=== PATIENT | male | born 1950 | race Caucasian/White ===

== ENCOUNTER 2017-06-08 09:09 | Emergency (ER) | payer BC, MEDICARE ==
[2017-06-08 09:34] LABS: URINE MUCUS NONE SEEN (Up to 25%); URINE WBC NONE SEEN (0-4/hpf)
[2017-06-08 09:51] LABS: URINE APPEARANCE CLEAR; URINE BILIRUBIN 0.5 mg/100ml (1+) (NEGATIVE); URINE BLOOD TRACE (NEGATIVE); URINE COLOR DARK YELLOW; URINE GLUCOSE NORMAL (NEGATIVE); URINE KETONE 5mg/dL (NEGATIVE); URINE LEUKOCYTE ESTERASE NEGATIVE (NEGATIVE); URINE NITRITE NEGATIVE (NEGATIVE); URINE PH 6.5 (5-7); URINE PROTEIN 10mg/dL (trace) (NEG - TRACE); URINE RBC 0-5/hpf (0-5/hpf); URINE UROBILINOGEN 1mg/dL (Normal) (NEG-1mg/dL)
[2017-06-08 09:52] LABS: URINE BACTERIA NONE SEEN (<10/hpf)
[2017-06-08 10:07] LABS: HEMATOCRIT 52.3 % (42.0-54.0); HEMOGLOBIN 17.8 g/dL (14.0-18.0); MEAN CORPUSCULAR HEMOGLOBIN 33.8 pg (29.0-35.0); RED BLOOD COUNT 5.27 X 10^6uL (4.20-6.10); RED CELL DISTRIBUTION WIDTH 12.5 % (11.5-14.5); WHITE BLOOD COUNT 9.6 X 10^3uL (3.9-10.7)
[2017-06-08 10:08] LABS: BASOPHIL# 0.1 X 10^3uL (0.0-0.1); BASOPHILS 0.8 % (0.0-2.0); EOSINOPHILS 1.1 % (0.0-6.0); EOSINOPHILS# 0.1 X 10^3uL (0.0-0.4); LYMPHOCYTES 13.9 % (20.0-40.0); LYMPHOCYTES# 1.3 X 10^3uL (0.8-3.8); MONOCYTES# 1.3 X 10^3uL (0.2-1.0); NEUTROPHILS 70.2 % (54.0-75.0); NEUTROPHILS# 6.7 X 10^3uL (2.6-6.7); PLATELET COUNT 215 X 10^3uL (130-440)
[2017-06-08] MEDS ORDERED: ONDANSETRON HCL 4 MG/2 ML VIAL ONE (10:10)
[2017-06-08] MEDS ORDERED: NORMAL SALINE 1,000 ML IV ONE (10:11)
[2017-06-08] MEDS ORDERED: MORPHINE SULFATE 4 MG/ML SYR ONE ×2 (10:11→11:49)
[2017-06-08 10:16] LABS: ALBUMIN 4.5 g/dL (3.5-5.0); ALKALINE PHOSPHATASE 57 U/L (38-126); ALT 41 U/L (21-72); AST 26 U/L (17-59); BILIRUBIN, DIRECT 0.3 mg/dL (0.0-0.4); BILIRUBIN, TOTAL 1.9 mg/dL (0.2-1.3); BLOOD UREA NITROGEN 15 mg/dL (9-20); CALCIUM 9.5 mg/dL (8.4-10.2); CHLORIDE 103 mmol/L (98-107); EST GLOMERULAR FILTRATION RATE > 60 mL/min; GLUCOSE 103 mg/dL (70-100); LIPASE 43 U/L (23-300); POTASSIUM 3.9 mmol/L (3.5-5.1); SODIUM 140 mmol/L (137-145); TOTAL PROTEIN 7.5 g/dL (6.3-8.2)
--- NOTE | 2017-06-08 11:05 | CT REPORT ---
HISTORY: Abdominal pain COMPARISON: None. TECHNIQUE: This examination was performed using automated exposure control, adjustment of mA or kV according to patient size, and/or use of iterative reconstruction technique. Multiple contiguous axial images were obtained from the lung bases through the pubic symphysis following administration of intravenous con trast. 98cc Isovue 300 contrast. FINDINGS: There is minimal bibasal dependent atelectasis. The lung bases are otherwise clear. There is no pleur al or pericardial effusion. Abdomen/pelvis: The liver appears unremarkable. The gallbladder contains stones but shows no wall thi ckening or adjacent inflammation. Bile ducts are normal in caliber. The spleen contains scattered sma ll calcifications, consistent with old granulomatous disease. The pancreas, adrenal glands, and kidne ys appear unremarkable. The abdominal aorta is normal in caliber. Sigmoid diverticulosis is present, with a long segment wall thickening involving the proximal sigmoid colon. Adjacent inflammatory fat stranding is present. There is no free air adjacent to the sigmoid colon or elsewhere peritoneal cavity. Remainder of the bowel appears unremarkable. The bladder is chilo ssly normal. There is no free fluid. The prostate gland is mildly enlarged. No enlarged lymph nodes a re demonstrated. Surgical fusion has been performed at L3-4, with well seated and intact hardware. Degenerative disc d isease is severe at L4-5 and L5-S1. IMPRESSION: 1. Sigmoid diverticulitis, without evidence for abscess or perforation. 2. Cholelithiasis, without signs of cholecystitis. No bile duct obstruction. Final Electronic Signature: This report was electronically signed by Shahid Marques MD on 06/08/2017 11:02 AM. [email or web address] / / [place] [employer] [phone]
[2017-06-08] MEDS ORDERED: AMPICILLIN/SULBACTAM 1.5 GM/10 ML VIAL IV ONE (11:43)
[2017-06-08] MEDS ORDERED: NORMAL SALINE MINI-BAG+ 100 ML IV ONE (11:43)
--- NOTE | 2017-06-08 12:22 | ER PHYSICIAN DOCUMENTATION ---
Physician Documentation [facility] Name:Jaime Staples Age:66 yrs Sex:Male :1950 Arrival Date:06/08/2017 Time:09:09 Bed5 Private MD: Alessandro Rodriguez Disposition: 06/08/17 11:34 Discharged to Home/Self Care. Impression: Diverticulitis w/o Hemorrhage. - Condition is Good. - Discharge Instructions: Colon Diverticulum - DIVERTICULITIS. - Prescriptions for Augmentin 875- 125 mg Oral Tablet - take 1 tablet by ORAL route every 12 hours for 10 days; 20 tablet. Hydrocodone- Acetaminophen 5-325 mg Oral Tablet - take 1 tablet by ORAL route every 6 hours As needed; 20 tablet. - Medical Reconciliation form form. - Follow up: Private Physician; When: 1 week; Reason: Continuance of care. - Problem is new. - Symptoms have improved. HPI: 06/08 09:27 This 66 yrs old Male presents to ER with complaints of Urinary Problem. 09:27 The patient presents with urinary symptoms, urinary frequency. Onset: The symptom(s)/episode began/occurred yesterday, and became worse today. Associated signs and symptoms: Pertinent positives: abdominal pain. The patient has not experienced similar symptoms in the past. 09:43 Modifying factors: the symptoms are aggravated by nothing. Severity of symptoms: in the emergency department the symptoms are unchanged. The patient has not recently seen a physician. Pt's been having vague abd pain for the past 2 days and it's steadily getting worse. Pain is lower and maybe more on the R side. No back pain. No surgeries on belly before. . Historical: - Allergies: No known drug Allergies; - Home Meds: 1. atorvastatin 20 mg oral tab 1 tab once daily - PMHx: Hyperlipidemia; - PSHx: lumbar laminectomy; Lumbar Fusion; - Tetanus: < 10 years. - Ebola Screening: : Patient negative for fever greater than or equal to 101.5 degrees Fahrenheit, and additional compatible Ebola Virus Disease symptoms. Patient denies exposure to infectious person. Patient denies travel to an Ebola-affected area in the 21 days before illness onset. . - Immunization history: Pneumococcal vaccine is up to date, Flu Vaccine < 1 year. - Social history: Smoking status: Patient states was never smoker of tobacco. ROS: 09:44 Constitutional: Positive for chills, Negative for fever. jm 09:44 ENT: 09:44 Cardiovascular: Negative for chest pain. 09:44 Respiratory: Negative for cough, shortness of breath. 09:44 Abdomen/GI: Positive for abdominal pain, nausea, abdominal cramps, Negative for vomiting, diarrhea, constipation. 09:44 Back: Negative for decreased range of motion, pain at rest. 09:44 : Positive for pelvic pain, Negative for urinary symptoms, flank pain. 09:44 All other systems are negative. Exam: 09:45 Constitutional: The patient appears alert, awake. jm 09:45 Eyes: Periorbital structures: appear normal, Conjunctiva: normal. 09:45 ENT: Nose: is normal, Voice: is normal. 09:45 Neck: Thyroid: appears normal, Trachea: is midline with no obvious abnormalities. 09:45 Cardiovascular: Rate: normal, Rhythm: regular. 09:45 Respiratory: Respirations: normal, Breath sounds: are normal. 09:45 Abdomen/GI: Bowel sounds: normal, Palpation: moderate abdominal tenderness, in the suprapubic area, right lower quadrant and left lower quadrant- greater on the R. 09:45 Back: pain, is absent, CVA tenderness, is absent. 09:45 : CVA tenderness, is absent, Bladder: tenderness, that is moderate. 09:45 Musculoskeletal/extremity: Weight bearing: able to fully bear weight. 09:45 Skin: Appearance: Color: pink, no rash present. 09:45 Neuro: Mentation: is normal, Memory: is normal, Gait: is steady. 09:45 Psych: Behavior/mood is pleasant, cooperative, Affect is calm. Vital Signs: 09:36 BP 162 / 92; Pulse 84; Resp 16; Temp 98.0(TE); Pulse Ox 93% on R/A; Weight 78.02 kg; lp Height 5 ft. 5 in. (165.10 cm); Pain 3/10; 11:44 BP 159 / 83; Pulse 73; Resp 16; Pulse Ox 90% on R/A; lp 12:20 BP 139 / 85; Pulse 77; Pulse Ox 92% on R/A; lp 09:36 Body Mass Index 28.62 (78.02 kg, 165.10 cm) lp MDM: 09:14 Patient medically screened. jm 09:50 Differential diagnosis: nonspecific abdominal pain, appendicitis, UTI. Data reviewed: vital signs, nurses notes, lab test result(s). 11:30 Data reviewed: and as a result, I will discharge patient. Counseling: I had a detailed discussion with the patient and/or guardian regarding: the historical points, exam findings, and any diagnostic results supporting the discharge/admit diagnosis, lab results, radiology results, the need for outpatient follow up. Medication response: The patient's symptoms have improved, ED course: Pt here for Abd pain. Found to have diverticulitis on CT. Will give 1st does of unicin here and DC w Augmentin and pain meds. . 06/08 09:53 Order name: UA W/ MICRO -CULTURE IF IND; Complete Time: 09:53 EDMS 06/08 10:08 Order name: CBC AUTO DIF, MDIF/RMOR IF IND; Complete Time: 10:41 EDMS 06/08 10:18 Order name: BASIC METABOLIC PANEL; Complete Time: 10:41 EDMS 06/08 10:18 Order name: HEPATIC PANEL; Complete Time: 10:41 EDMS 06/08 10:18 Order name: LIPASE; Complete Time: 10:41 EDMS 06/08 11:05 Order name: CAT SCAN; ABD/PEL W [id number]; Complete Time: 11:40 EDMS 06/08 09:43 Order name: NPO; Complete Time: 10:04 06/08 09:43 Order name: Pulse Ox Continuous; Complete Time: 10:04 Dispensed Medications: 10:03 Drug: Zofran 4 mg; Route: IVP; Infused Over: 2 mins; Site: right antecubital; lp 11:43 Follow up: Response: Nausea is decreased lp 10:03 Drug: NS 0.9% 1000 ml; Route: IV; Rate: bolus; Site: right antecubital; lp 11:42 Follow up: IV Status: Completed infusion; IV Intake: 1000ml lp 10:03 Drug: morphine 4 mg; Route: IVP; Site: right antecubital; lp 11:03 Follow up: Response: Pain is decreased lp 11:43 Drug: Unasyn 1.5 grams; Route: IVPB; Site: right antecubital; lp 12:21 Follow up: Response: No adverse reaction; No change in condition; IV Status: Completed lp infusion; IV Intake: 100ml 11:43 Drug: morphine 4 mg; Route: IVP; Site: right antecubital; lp 12:21 Follow up: Response: No adverse reaction; No change in condition lp Point of Care Testing: Urine Dip: 09:38 pH: 6.5; ; Specific [place]: 1.020; Ketones: Trace; Glucose: Negative; Protein: lp Negative; Leukocytes: Negative; Nitrite: Negative ; Blood: Hemolyzed Trace; Bilirubin: Small (+) ; Urobilinogen: Normal Signatures: Bree Shea RN RN lp Alessandro Marrufo MD MD
--- NOTE | 2017-06-08 12:22 | ER NURSING DOCUMENTATION ---
Nurse's Notes [facility] Name:Jaime Staples Age:66 yrs Sex:Male :1950 Arrival Date:06/08/2017 Time:09:09 Bed5 Private MD: Diagnosis:Diverticulitis w/o Hemorrhage Presentation: 06/08 09:13 Acuity: DOREEN 3 tg 09:33 Presenting complaint: Patient states: Urinary discomfort. Transition of care: Home. lp 09:33 Method Of Arrival: Private Vehicle lp Triage Assessment: 09:34 General: Appears in no apparent distress, Behavior is appropriate for age. Pain: Denies lp pain. EENT: No deficits noted. Neuro: No deficits noted. Cardiovascular: Heart tones S1 S2. Respiratory: Breath sounds are clear bilaterally. GI: Bowel sounds present X 4 quads. Reports nausea. : Reports cramping in bilateral lower quadrant(s) urinary frequency since Thursday. Derm: No deficits noted. Historical: - Allergies: No known drug Allergies; - Home Meds: 1. atorvastatin 20 mg oral tab 1 tab once daily - PMHx: Hyperlipidemia; - PSHx: lumbar laminectomy; Lumbar Fusion; - Tetanus: < 10 years. - Ebola Screening: : Patient negative for fever greater than or equal to 101.5 degrees Fahrenheit, and additional compatible Ebola Virus Disease symptoms. Patient denies exposure to infectious person. Patient denies travel to an Ebola-affected area in the 21 days before illness onset. . - Immunization history: Pneumococcal vaccine is up to date, Flu Vaccine < 1 year. - Social history: Smoking status: Patient states was never smoker of tobacco. Screenin:37 Infectious Disease Risk None. Abuse screen: Denies threats or abuse. Denies injuries lp from another. Nutritional screening: No deficits noted. Vital Signs: 09:36 BP 162 / 92; Pulse 84; Resp 16; Temp 98.0(TE); Pulse Ox 93% on R/A; Weight 78.02 kg; lp Height 5 ft. 5 in. (165.10 cm); Pain 3/10; 11:44 BP 159 / 83; Pulse 73; Resp 16; Pulse Ox 90% on R/A; lp 12:20 BP 139 / 85; Pulse 77; Pulse Ox 92% on R/A; lp 09:36 Body Mass Index 28.62 (78.02 kg, 165.10 cm) lp ED Course: 09:10 Patient arrived in ED. ds 09:12 Gómez Quiroz, RN is Primary Nurse. tg 09:13 Triage completed. tg 09:15 Alessandro Marrufo MD is Attending Physician. jm 09:[address] Marrufo notified. lp 09:37 Valuables Remains with patient Patient has correct armband on for positive lp identification. Bed in low position. Call light in reach. 10:05 Inserted peripheral IV: 20 gauge in right antecubital area. lp 10:[address] [place] 10:50 Patient moved back from [address]. [place] Administered Medications: 10:03 Drug: Zofran 4 mg; Route: IVP; Infused Over: 2 mins; Site: right antecubital; lp 11:43 Follow up: Response: Nausea is decreased lp 10:03 Drug: NS 0.9% 1000 ml; Route: IV; Rate: bolus; Site: right antecubital; lp 11:42 Follow up: IV Status: Completed infusion; IV Intake: 1000ml lp 10:03 Drug: morphine 4 mg; Route: IVP; Site: right antecubital; lp 11:03 Follow up: Response: Pain is decreased lp 11:43 Drug: Unasyn 1.5 grams; Route: IVPB; Site: right antecubital; lp 12:21 Follow up: Response: No adverse reaction; No change in condition; IV Status: Completed lp infusion; IV Intake: 100ml 11:43 Drug: morphine 4 mg; Route: IVP; Site: right antecubital; lp 12:21 Follow up: Response: No adverse reaction; No change in condition lp Point of Care Testing: Urine Dip: 09:38 pH: 6.5; ; Specific [place]: 1.020; Ketones: Trace; Glucose: Negative; Protein: lp Negative; Leukocytes: Negative; Nitrite: Negative ; Blood: Hemolyzed Trace; Bilirubin: Small (+) ; Urobilinogen: Normal Intake: 11:42 IV: 1000ml; Total: 1000ml. lp 12:21 IV: 100ml; Total: 1100ml. lp Outcome: 11:34 Discharge ordered by . jm 12:20 Condition: improved lp 12:21 Discharged to home ambulatory. lp 12:21 Instructed on discharge instructions, follow up and referral plans. medication usage. 12:21 Patient left the ED. lp 07/25 09:54 Discharge F/U Call: Unable to reach: left voicemail: tg Signatures: Gómez Quiroz RN RN Bree Aranda RN RN lp Karen Cochran, Maury Reg Alessandro Josue MD MD jm Abbott, Katarzyna kenyon
== END 2017-06-08 12:22 | disposition home or self-care (01) ==
LOC: ER 09:09
DX: K57.32 Diverticulitis of large intestine without perforation or abscess without bleeding (principal); R11.0 Nausea; R10.31 Right lower quadrant pain; R10.32 Left lower quadrant pain; R10.2 Pelvic and perineal pain; Z79.899 Other long term (current) drug therapy
CPT/HCPCS: 74177; 80048; 80076; 81001; 83690; 85025; 96361; 96365; 96375; 96376; 99284; J0295; J2270; J2405; J7030